=== PATIENT | female | born 1940 | race Caucasian/White ===

== ENCOUNTER 2017-09-24 14:23 | Outpatient (CLI) | payer MEDICARE, BC ==
[2017-09-24 16:16] LABS: Hemoglobin 13.4 g/dL (12.0-16.0); Mean Corpuscular HGB CONC 32.2 g/dL (32.0-36.0); Mean Corpuscular Hemoglobin 31.1 pg (27.0-31.0); Mean Corpuscular Volume 96.5 fl (81.0-99.0); Mean Platelet Volume 7.5 fL (7.4-10.4); Platelet Count 314 thou/uL (130-400); RBC Distribution Width 13.4 % (11.5-14.5); Red Blood Cell (RBC) Count 4.31 mill/uL (4.20-5.40); White Blood Cell (WBC) Count 8.2 thou/uL (4.8-10.8)
[2017-09-24 16:40] LABS: Anion Gap 9 mmol/L (10-20); BUN (Urea Nitrogen) 6 mg/dL (9.8-20.1); Calc. Creatinine Clearance 0 mL/min (70-130); Calcium 9.6 mg/dL (7.8-10.44); Carbon Dioxide 28 mmol/L (23-31); Chloride 103 mmol/L (98-107); Estimated GFR-MDRD 80; Glucose 90 mg/dL (83-110); Potassium 3.6 mmol/L (3.5-5.1); Sodium 136 mmol/L (136-145)
--- NOTE | 2017-09-25 15:55 | EKG ---
Test Reason : Blood Pressure : / mmHG Vent. Rate : 074 BPM Atrial Rate : 074 BPM P-R Int : 162 ms QRS Dur : 074 ms QT Int : 390 ms P-R-T Axes : 066 060 059 degrees QTc Int : 432 ms Normal sinus rhythm Minimal voltage criteria for LVH, may be normal variant Nonspecific ST abnormality Abnormal ECG Confirmed by RAMIN SOUZA ([id number]) on 09/25/2017 3:55:36 PM Referred By: CHENG Confirmed By:RAMIN SOUZA
== END 2017-09-24 14:24 | disposition home or self-care (01) ==
LOC: LABBT 14:23
PROVIDERS: ATTEND Thoracic Surgery (Cardiothoracic Vascular Surgery)
DX: Z01.818 Encounter for other preprocedural examination (principal); I65.21 Occlusion and stenosis of right carotid artery
CPT/HCPCS: 80048; 85027; 93005; 93010

== ENCOUNTER 2017-09-24 14:30 | Inpatient (IN) | payer MEDICARE, BC ==
[2017-09-24 14:45] VITALS: BMI 18.9
[2017-09-25] MEDS ORDERED: Heparin 5,000 UNITS/ML VIAL ONE (06:26)
[2017-09-25] MEDS ORDERED: Bupivacaine 0.25% HCL 30 ML VIAL ONE (06:26)
[2017-09-25] MEDS ORDERED: Protamine Sulfate 50 MG/5 ML VIAL ONE (06:26)
[2017-09-25] MEDS ORDERED: PHENYLEPHRINE-NS 100 MCG/ML 10 ML SYRINGE ONE ×2 (07:05→16:45)
[2017-09-25] MEDS ORDERED: Fentanyl 100 MCG/2 ML VIAL ONE ×2 (07:05→09:42)
[2017-09-25] MEDS ORDERED: Phenylephrine HCL 10 MG/ML VIAL ONE (07:06)
[2017-09-25] MEDS ORDERED: Nitroglycerin 50 MG/250 ML BOT 0 ML ONE (07:06)
[2017-09-25] MEDS ORDERED: CEFAZOLIN/Water 2 GM/20 ML SYRINGE ONE (07:32)
[2017-09-25] MEDS ORDERED: Ondansetron HCl/PF 4 MG/2 ML Vial IVP PRN ×2 (09:56→11:25)
[2017-09-25] MEDS ORDERED: Promethazine HCl 25 MG/ML VIAL IM/IV PRN (09:56)
[2017-09-25] MEDS ORDERED: Non-Formulary Medication 1 EACH PO PRN (09:56)
--- NOTE | 2017-09-25 09:57 | OP ---
PREOPERATIVE DIAGNOSIS: Critical right carotid stenosis. POSTOPERATIVE DIAGNOSIS: Critical right carotid stenosis. PROCEDURE: Right carotid endarterectomy with bovine patch angioplasty. SURGEON: Nathaniel Prabhakar M.D. ANESTHESIA: General. ESTIMATED BLOOD LOSS: Less than 100 mL MUSEUM ARCHIVIST: Timmy Gracia MD. PROCEDURE IN DETAIL: After prepping and draping the right neck and after ultrasound localization of the carotid bulb, the patient had an incision made, rotating sternocleidomastoid muscle medially. Co mmon internal and external carotid arteries were identified as was the hypoglossal nerve. The vagus nerve was not specifically seen. After 7500 units of heparin with adequate ACT levels, clamps were a pplied, arteriotomy performed, and a 10-[place] shunt was placed with excellent backbleeding. Followi ng this, endarterectomy was performed with nice tapering distally. Any particulate material was izabela soy and the area was thoroughly irrigated. Following this, a bovine patch was used to close the petra riotomy, removing the shunt, back flushing and forward flushing prior to securing the suture line. F low was restored up the external and then internal carotid arteries. Following this, protamine was g iven to partially reverse the heparin and after obtaining good hemostasis, the wound was irrigated an d closed in layers.
[2017-09-25] MEDS ORDERED: Fentanyl 100 MCG/2 ML VIAL SLOW IVP PRN ×2 (11:25)
[2017-09-25] MEDS ORDERED: DOPamine 400 MG/D5W 250 ML 250 ML IVPB PRN (11:25)
[2017-09-25] MEDS ORDERED: HYDROcodone/Acetaminophen 5/325 mg Tablet PO PRN (11:25)
[2017-09-25] MEDS ORDERED: Promethazine HCl 25 MG/ML VIAL IM PRN (11:25)
[2017-09-25] MEDS ORDERED: Acetaminophen 325 MG TAB PO PRN (11:25)
[2017-09-25] MEDS ORDERED: hydrALAZINE 20 MG/ML VIAL SLOW IVP PRN (11:25)
[2017-09-25] MEDS ORDERED: Sodium Chloride 0.9% 1,000 ML IV SCH (11:25)
[2017-09-25] MEDS ORDERED: Phenylephrine 10 MG/NS 250 ML 250 ML IVPB PRN (11:25)
[2017-09-25] MEDS: HYDROcodone/Acetaminophen 5/325 mg Tablet PO PRN ×2 (14:19→20:35)
[2017-09-25] MEDS: CEFAZOLIN/Water 2 GM/20 ML SYRINGE SLOW IVP SCH ×2 (16:05→23:37)
[2017-09-25] MEDS ORDERED: Dexamethasone 20 MG/5 ML VIAL ONE (16:45)
[2017-09-25] MEDS ORDERED: Glycopyrrolate 0.2 MG/ML 5 ML SYRINGE ONE (16:45)
[2017-09-25] MEDS ORDERED: Heparin 10,000 UNITS/ 10 ML VIAL ONE (16:45)
[2017-09-25] MEDS ORDERED: ePHEDrine/0.9% NaCl/PF SYRINGE 50 mg/10 ml ONE (16:45)
[2017-09-25] MEDS ORDERED: Ondansetron HCl/PF 4 MG/2 ML Vial ONE (16:45)
[2017-09-25] MEDS ORDERED: Lidocaine 1% PF 5 ML VIAL ONE (16:45)
[2017-09-25] MEDS ORDERED: PROPOFOL 200 MG/20 ML VIAL ONE (16:45)
[2017-09-25] MEDS: cycloSPORINE 0.05% Ophthalmic Droperette EA EYE SCH (20:34)
[2017-09-25] MEDS ORDERED: Simvastatin 5 MG TAB PO SCH (21:00)
[2017-09-25] MEDS ORDERED: ALPRAZolam 0.5 MG TAB PO SCH (21:00)
[2017-09-26] MEDS ORDERED: Levothyroxine Sodium 100 MCG TAB PO SCH (06:00)
--- NOTE | 2017-09-26 06:29 | DIS ---
HOSPITAL COURSE: The patient was admitted on 09/25/2017 where she underwent a right carotid endarter ectomy. Postoperative course was uneventful, although she did have a slight right lower lip paresis. She had no swelling in her neck. She will be discharged home on her admitting medicines with a pre scription for tramadol 50 mg. Discharge and follow up instructions have been given.
[2017-09-26] MEDS: cycloSPORINE 0.05% Ophthalmic Droperette EA EYE SCH (07:59)
[2017-09-26] MEDS: CEFAZOLIN/Water 2 GM/20 ML SYRINGE SLOW IVP SCH (07:59)
[2017-09-26 09:02] VITALS: TEMP 98.1
== END 2017-09-26 09:00 | disposition home or self-care (01) | DRG 39 ==
LOC: SURG A 09-25 06:23 → CCU 09-25 11:02
PROVIDERS: ADMIT Thoracic Surgery (Cardiothoracic Vascular Surgery); ATTEND Thoracic Surgery (Cardiothoracic Vascular Surgery)
PROC: 03CH0ZZ Extirpation of Matter from Right Common Carotid Artery, Open Approach (ICD-10-PCS; principal; 2017-09-25)
PROC: 03UH0JZ Supplement Right Common Carotid Artery with Synthetic Substitute, Open Approach (ICD-10-PCS; 2017-09-25)
DX: I65.21 Occlusion and stenosis of right carotid artery (principal); E78.2 Mixed hyperlipidemia; Z79.82 Long term (current) use of aspirin; K21.9 Gastro-esophageal reflux disease without esophagitis; F17.210 Nicotine dependence, cigarettes, uncomplicated; Z88.1 Allergy status to other antibiotic agents; Z91.030 Bee allergy status
CPT/HCPCS: 80048; 85027; 93005; 93010; 96374; J1100; J1642; J1644; J2001; J2370; J2405; J2704; J2720; J3010; S0020

== ENCOUNTER 2019-03-24 10:43 | Outpatient (CLI) | payer MEDICARE, BC ==
--- NOTE | 2019-03-25 06:48 | MMO ---
Bilateral MAMMO Bilat Screen [facility]. CLINICAL HISTORY: Patient is 79 years old and is seen for screening. The patient has no family history of breast cancer. The patient has no personal history of cancer. The patient has a history of left cyst aspiration in AGE: 22S - benign. VIEWS: The views performed were: bilateral craniocaudal with tomosynthesis and bilateral mediolateral oblique with tomosynthesis. FILMS COMPARED: The present examination has been compared to prior imaging studies performed at [facility] on 03/22/2018, and at [facility] on 03/03/2015, 03/06/2016 and 03/21/2017. MAMMOGRAM FINDINGS: There are scattered fibroglandular densities. There are stable benign appearing calcifications seen in both breasts. There are no suspicious masses, suspicious calcifications, or new areas of architectural distortion. IMPRESSION: THERE IS NO MAMMOGRAPHIC EVIDENCE OF MALIGNANCY. A ROUTINE FOLLOW-UP MAMMOGRAM IN 1 YEAR IS RECOMMENDED. THE RESULTS OF THIS EXAM WERE SENT TO THE PATIENT. ACR BI-RADS Category 2 - Benign finding MAMMOGRAPHY NOTE: 1. A negative mammogram report should not delay a biopsy if a dominant of clinically suspicious mass is present. 2. Approximately 10% to 15% of breast cancers are not detected by mammography. 3. Adenosis and dense breasts may obscure an underlying neoplasm. Reported by: MIKE MOODY MD Electonically Signed: [id number]
== END 2019-03-24 10:44 | disposition home or self-care (01) ==
LOC: BICMAMMO 10:43
PROVIDERS: ATTEND Internal Medicine
DX: Z12.31 Encounter for screening mammogram for malignant neoplasm of breast (principal)
CPT/HCPCS: 77063; 77067

== ENCOUNTER 2021-09-29 16:02 | Inpatient (IN) | payer MEDICARE, BC ==
[2021-09-29] MEDS ORDERED: Ondansetron PF 4 MG/2 ML Vial IVP PRN (17:37)
[2021-09-29] MEDS ORDERED: Acetaminophen 325 MG TAB PO PRN (17:37)
[2021-09-29] MEDS ORDERED: Dexamethasone 4 mg/ml Vial SLOW IVP SCH (18:00)
[2021-09-29] MEDS ORDERED: ALPRAZolam 0.5 MG TAB ONE (21:25)
[2021-09-29] MEDS: ALPRAZolam 0.5 MG TAB PO SCH (21:31)
[2021-09-29] MEDS: Dexamethasone 4 mg/ml Vial SLOW IVP SCH (21:31)
[2021-09-29] MEDS ORDERED: Dexamethasone 4 mg/ml Vial ONE (21:33)
[2021-09-30] MEDS: Dexamethasone 4 mg/ml Vial SLOW IVP SCH ×4 (05:08→21:55)
[2021-09-30] MEDS: Levothyroxine Sodium 100 MCG TAB PO SCH (05:08)
[2021-09-30 07:12] LABS: #Lymphocytes 0.6 thou/uL (1.20-3.40); #Monocytes 0.4 thou/uL (0.11-0.59); #Neutrophils 5.4 thou/uL (1.40-6.50); %Basophils 0.5 % (0.0-1.0); %Lymphocytes 9.8 % (21.0-51.0); %Monocytes 6.7 % (0.0-10.0); Hemoglobin 13.9 g/dL (12.0-16.0); Mean Corpuscular HGB CONC 32.3 g/dL (32.0-36.0); Mean Corpuscular Hemoglobin 31.6 pg (27.0-31.0); Mean Corpuscular Volume 97.6 fL (78.0-98.0); Mean Platelet Volume 6.5 fL (7.4-10.4); Platelet Count 308 thou/uL (130-400); RBC Distribution Width 12.2 % (11.5-14.5); Red Blood Cell (RBC) Count 4.41 mill/uL (4.20-5.40); White Blood Cell (WBC) Count 6.4 thou/uL (4.8-10.8)
[2021-09-30 07:27] LABS: BUN (Urea Nitrogen) 11 mg/dL (9.8-20.1); Calc. Creatinine Clearance 50 mL/min (70-130); Calcium 9.6 mg/dL (7.8-10.44); Carbon Dioxide 26 mmol/L (23-31); Chloride 100 mmol/L (98-107); Glucose 143 mg/dL (83-110); Potassium 4.4 mmol/L (3.5-5.1); Sodium 134 mmol/L (136-145)
[2021-09-30] MEDS: Pantoprazole 40 MG VIAL IVP SCH (08:05)
[2021-09-30] MEDS: Aspirin 81 mg Enteric Coated Tablet PO SCH (08:05)
[2021-09-30 09:43] LABS: Anion Gap 12 mmol/L (10-20)
[2021-09-30] MEDS ORDERED: Iopamidol-370 76% 500 ML 1 ML ONE (11:22)
[2021-09-30] MEDS ORDERED: Magnevist 469MG/ML 20 ML VIAL ONE (11:37)
[2021-09-30 12:06] VITALS: BMI 18.8
[2021-09-30] MEDS: levETIRAcetam in NS 500 MG in Premix Bag 1 BAG IVPB SCH (21:54)
[2021-09-30] MEDS: ALPRAZolam 0.5 MG TAB PO SCH (21:55)
[2021-10-01] MEDS: Dexamethasone 4 mg/ml Vial SLOW IVP SCH ×4 (03:38→20:46)
[2021-10-01] MEDS: Levothyroxine Sodium 100 MCG TAB PO SCH (06:35)
[2021-10-01] MEDS: levETIRAcetam in NS 500 MG in Premix Bag 1 BAG IVPB SCH ×2 (09:15→20:49)
[2021-10-01] MEDS: Aspirin 81 mg Enteric Coated Tablet PO SCH (09:16)
[2021-10-01] MEDS: Pantoprazole 40 MG VIAL IVP SCH (09:16)
[2021-10-01] MEDS: ALPRAZolam 0.5 MG TAB PO SCH (20:46)
[2021-10-02] MEDS: Dexamethasone 4 mg/ml Vial SLOW IVP SCH ×4 (03:45→20:33)
[2021-10-02] MEDS: Levothyroxine Sodium 100 MCG TAB PO SCH (07:30)
[2021-10-02] MEDS: levETIRAcetam in NS 500 MG in Premix Bag 1 BAG IVPB SCH (09:05)
[2021-10-02] MEDS: ALPRAZolam 0.5 MG TAB PO SCH (20:33)
[2021-10-02] MEDS: levETIRAcetam 500 MG TAB PO SCH (20:34)
[2021-10-03] MEDS: Dexamethasone 4 mg/ml Vial SLOW IVP SCH ×4 (03:13→20:09)
[2021-10-03] MEDS: Levothyroxine Sodium 100 MCG TAB PO SCH (05:04)
[2021-10-03 05:14] LABS: Anion Gap 11 mmol/L (10-20); BUN (Urea Nitrogen) 17 mg/dL (9.8-20.1); Calc. Creatinine Clearance 65 mL/min (70-130); Calcium 8.8 mg/dL (7.8-10.44); Carbon Dioxide 26 mmol/L (23-31); Chloride 101 mmol/L (98-107); Glucose 123 mg/dL (83-110); Potassium 4.3 mmol/L (3.5-5.1); Sodium 134 mmol/L (136-145)
[2021-10-03] MEDS: levETIRAcetam 500 MG TAB PO SCH ×2 (09:23→20:09)
[2021-10-03] MEDS: ALPRAZolam 0.5 MG TAB PO SCH (20:09)
[2021-10-04] MEDS: Dexamethasone 4 mg/ml Vial SLOW IVP SCH ×4 (03:04→21:59)
[2021-10-04] MEDS: Levothyroxine Sodium 100 MCG TAB PO SCH (05:22)
[2021-10-04] MEDS: levETIRAcetam 500 MG TAB PO SCH ×2 (08:21→21:59)
[2021-10-04] MEDS: ALPRAZolam 0.5 MG TAB PO SCH (21:59)
[2021-10-05] MEDS: Dexamethasone 4 mg/ml Vial SLOW IVP SCH ×3 (03:55→20:50)
[2021-10-05] MEDS: Levothyroxine Sodium 100 MCG TAB PO SCH (05:54)
[2021-10-05] MEDS: levETIRAcetam 500 MG TAB PO SCH ×2 (09:00→20:50)
[2021-10-05] MEDS: ALPRAZolam 0.5 MG TAB PO SCH (20:47)
[2021-10-06] MEDS: Levothyroxine Sodium 100 MCG TAB PO SCH (05:38)
[2021-10-06] MEDS: Dexamethasone 4 mg/ml Vial SLOW IVP SCH (09:55)
[2021-10-06] MEDS: levETIRAcetam 500 MG TAB PO SCH ×2 (09:55→20:49)
[2021-10-06] MEDS: Dexamethasone 4 MG TAB PO SCH (18:59)
[2021-10-06] MEDS: ALPRAZolam 0.5 MG TAB PO SCH (20:49)
[2021-10-07] MEDS: Levothyroxine Sodium 100 MCG TAB PO SCH (05:30)
[2021-10-07] MEDS: Dexamethasone 4 MG TAB PO SCH ×2 (09:23→16:39)
[2021-10-07] MEDS: levETIRAcetam 500 MG TAB PO SCH ×2 (09:23→20:54)
[2021-10-07] MEDS: ALPRAZolam 0.5 MG TAB PO SCH (20:54)
[2021-10-08] MEDS: Levothyroxine Sodium 100 MCG TAB PO SCH (06:17)
[2021-10-08] MEDS: Dexamethasone 4 MG TAB PO SCH ×2 (09:48→16:07)
[2021-10-08] MEDS: levETIRAcetam 500 MG TAB PO SCH ×2 (09:48→20:19)
[2021-10-08] MEDS ORDERED: Bisacodyl 5 MG TAB PO SCH (19:30)
[2021-10-08] MEDS: ALPRAZolam 0.5 MG TAB PO SCH (20:19)
[2021-10-09] MEDS: Levothyroxine Sodium 100 MCG TAB PO SCH (05:28)
[2021-10-09 07:16] LABS: Anion Gap 12 mmol/L (10-20); BUN (Urea Nitrogen) 18 mg/dL (9.8-20.1); Calc. Creatinine Clearance 68 mL/min (70-130); Calcium 8.9 mg/dL (7.8-10.44); Carbon Dioxide 24 mmol/L (23-31); Chloride 98 mmol/L (98-107); Glucose 91 mg/dL (83-110); Potassium 4.4 mmol/L (3.5-5.1); Sodium 130 mmol/L (136-145)
[2021-10-09] MEDS: Bisacodyl 5 MG TAB PO SCH (07:24)
[2021-10-09] MEDS: levETIRAcetam 500 MG TAB PO SCH ×2 (07:25→20:39)
[2021-10-09] MEDS: Dexamethasone 4 MG TAB PO SCH ×2 (07:25→17:00)
[2021-10-09] MEDS: ALPRAZolam 0.5 MG TAB PO SCH (20:39)
[2021-10-10] MEDS: Levothyroxine Sodium 100 MCG TAB PO SCH (05:13)
[2021-10-10] MEDS: Dexamethasone 4 MG TAB PO SCH ×2 (08:00→17:17)
[2021-10-10] MEDS: Bisacodyl 5 MG TAB PO SCH (08:00)
[2021-10-10] MEDS: levETIRAcetam 500 MG TAB PO SCH (08:01)
[2021-10-10 08:22] VITALS: BP 119/72; TEMP 97.9
[2021-10-10] MEDS ORDERED: ALPRAZolam 0.5 MG TAB PO SCH (21:00)
== END 2021-10-10 17:35 | disposition home or self-care (01) | DRG 54 ==
LOC: ERS 16:02 → ERHOLD 17:24 → IMCU/EMU 22:39 → MSONC 09-30 18:43
PROVIDERS: ADMIT Internal Medicine; ATTEND Family Medicine
DX: C79.31 Secondary malignant neoplasm of brain (principal); G93.41 Metabolic encephalopathy; G93.5 Compression of brain; G93.6 Cerebral edema; I62.9 Nontraumatic intracranial hemorrhage, unspecified; C34.32 Malignant neoplasm of lower lobe, left bronchus or lung; E87.1 Hypo-osmolality and hyponatremia; Z51.5 Encounter for palliative care; Z66 Do not resuscitate; K21.9 Gastro-esophageal reflux disease without esophagitis; E03.9 Hypothyroidism, unspecified; E78.5 Hyperlipidemia, unspecified; F41.9 Anxiety disorder, unspecified; F32.A Depression, unspecified; Z87.891 Personal history of nicotine dependence; Z90.49 Acquired absence of other specified parts of digestive tract; Z88.1 Allergy status to other antibiotic agents; Z91.030 Bee allergy status; Z79.82 Long term (current) use of aspirin; Z79.899 Other long term (current) drug therapy; Z98.890 Other specified postprocedural states
CPT/HCPCS: 36415; 70553; 71260; 74177; 77014; 77290; 77334; 77336; 77412; 77417; 80048; 85025; 99285; A9579; C9113; J1100; J1953; J8540; Q9967

== ENCOUNTER 2021-12-14 18:45 | Observation (INO) | payer MEDICARE, BC ==
[2021-12-14] MEDS ORDERED: Acetaminophen 325 MG TAB ONE (20:30)
[2021-12-14] MEDS ORDERED: Boostrix 0.5 ML (Tdap) VIAL ONE (20:30)
[2021-12-14] MEDS ORDERED: HYDROcodone/Acetaminophen 5/325 mg Tablet ONE (20:30)
[2021-12-14 20:57] LABS: #Eosinphils 0.1 thou/uL (0.0-0.7); #Lymphocytes 1.1 thou/uL (1.20-3.40); #Monocytes 1.1 thou/uL (0.11-0.59); #Neutrophils 10.7 thou/uL (1.40-6.50); %Lymphocytes 8.7 % (21.0-51.0); %Monocytes 8.4 % (0.0-10.0); Hemoglobin 11.1 g/dL (12.0-16.0); Mean Corpuscular HGB CONC 32.9 g/dL (32.0-36.0); Mean Corpuscular Hemoglobin 31.2 pg (27.0-31.0); Mean Corpuscular Volume 94.9 fL (78.0-98.0); Mean Platelet Volume 6.1 fL (7.4-10.4); Platelet Count 483 thou/uL (130-400); RBC Distribution Width 13.3 % (11.5-14.5); Red Blood Cell (RBC) Count 3.57 mill/uL (4.20-5.40); White Blood Cell (WBC) Count 13.1 thou/uL (4.8-10.8)
[2021-12-14 21:11] LABS: ALT (SGPT) 9 U/L (8-55); AST (SGOT) 13 U/L (5-34); Albumin 3.4 g/dL (3.4-4.8); Alkaline Phosphatase 60 U/L (40-110); Anion Gap 15 mmol/L (10-20); BUN (Urea Nitrogen) 11 mg/dL (9.8-20.1); Bilirubin, Total 0.5 mg/dL (0.2-1.2); Calc. Creatinine Clearance 0 mL/min (70-130); Calcium 8.9 mg/dL (7.8-10.44); Carbon Dioxide 22 mmol/L (23-31); Chloride 103 mmol/L (98-107); Globulin 2.5 g/dL (2.4-3.5); Glucose 112 mg/dL (83-110); Potassium 4.2 mmol/L (3.5-5.1); Protein, Total 5.9 g/dL (5.8-8.1); Sodium 136 mmol/L (136-145)
[2021-12-14 22:31] VITALS: BMI 21.6
[2021-12-15] MEDS ORDERED: Ondansetron PF 4 MG/2 ML Vial IVP PRN (05:06)
[2021-12-15] MEDS ORDERED: Ondansetron ODT 4 MG TAB PO PRN (05:06)
[2021-12-15] MEDS ORDERED: Acetaminophen 325 MG TAB PO PRN (05:06)
[2021-12-15] MEDS ORDERED: Acetaminophen 650 MG Suppository PR PRN (05:06)
[2021-12-15 07:28] LABS: #Eosinphils 0.2 thou/uL (0.0-0.7); #Lymphocytes 1.1 thou/uL (1.20-3.40); #Neutrophils 7.8 thou/uL (1.40-6.50); %Basophils 0.3 % (0.0-1.0); %Eosinophils 1.8 % (0.0-10.0); %Lymphocytes 10.8 % (21.0-51.0); %Monocytes 9.6 % (0.0-10.0); %Neutrophils 77.6 % (42.0-75.0); Hemoglobin 11.5 g/dL (12.0-16.0); Mean Corpuscular Hemoglobin 31.8 pg (27.0-31.0); Mean Corpuscular Volume 96.3 fL (78.0-98.0); Mean Platelet Volume 6.1 fL (7.4-10.4); Platelet Count 470 thou/uL (130-400); RBC Distribution Width 13.2 % (11.5-14.5); Red Blood Cell (RBC) Count 3.62 mill/uL (4.20-5.40)
[2021-12-15 07:52] LABS: Anion Gap 13 mmol/L (10-20); BUN (Urea Nitrogen) 7 mg/dL (9.8-20.1); Calc. Creatinine Clearance 74 mL/min (70-130); Calcium 9.4 mg/dL (7.8-10.44); Carbon Dioxide 25 mmol/L (23-31); Chloride 103 mmol/L (98-107); Glucose 92 mg/dL (83-110); Potassium 3.7 mmol/L (3.5-5.1); Sodium 137 mmol/L (136-145)
[2021-12-15 12:22] LABS: SARS-CoV-2 PCR by NAA Not Detected (NotDetected)
[2021-12-16 12:44] VITALS: BP 111/64; TEMP 98.3
== END 2021-12-16 14:47 ==
LOC: ERS 18:45 → T4-B 20:34
PROVIDERS: ADMIT Family Medicine; ATTEND Family Medicine
DX: S01.91XA Laceration without foreign body of unspecified part of head, initial encounter (principal); R55 Syncope and collapse; G30.9 Alzheimer's disease, unspecified; F02.80 Dementia in other diseases classified elsewhere, unspecified severity, without behavioral disturbance, psychotic disturbance, mood disturbance, and anxiety; K21.9 Gastro-esophageal reflux disease without esophagitis; F17.210 Nicotine dependence, cigarettes, uncomplicated; C71.9 Malignant neoplasm of brain, unspecified; M85.822 Other specified disorders of bone density and structure, left upper arm; M19.012 Primary osteoarthritis, left shoulder; G89.11 Acute pain due to trauma; M79.602 Pain in left arm; Z92.3 Personal history of irradiation; Z66 Do not resuscitate; Z79.890 Hormone replacement therapy; Z79.899 Other long term (current) drug therapy; Z88.1 Allergy status to other antibiotic agents; Z88.2 Allergy status to sulfonamides; Z91.030 Bee allergy status; Z20.822 Contact with and (suspected) exposure to COVID-19; W19.XXXA Unspecified fall, initial encounter
CPT/HCPCS: 70450; 72125; 73030; 73060; 80048; 80053; 84484; 85025 ×2; 90471; 90715; 93005; 97110; 97116; 97139 ×3; 99285; U0003; U0005; 36415; G0378